=== PATIENT | female | born 1930 | race Caucasian/White ===

== ENCOUNTER 2016-11-29 13:16 | Inpatient (IN) | payer OTHER, MEDICARE ==
[~2016-11-29] VITALS: Ht 160 cm; Wt 46.4 kg
--- NOTE | ~2016-11-29 | HC ---
[facility] [place] [address] CONSULTATION Name: ROLACHANTALE Room #: 412-P [facility] IN M.R.#: [id number] Admission: 11/29/16 Attend Phys: Papi Corrales MD Discharge: 12/01/16 Date of : 34 Report #: [id number] THIS REPORT FOR: //name// CC: Ronal Corrales DATE OF SERVICE: 11/30/2016 REASON FOR WOUND CONSULTATION: Pressure ulcer of right hip. HISTORY OF PRESENT ILLNESS: The patient is an 86-year-old woman, who suffers from some dementia, who was living at home until recently, but has now been a female resident at the [facility] and was seen yesterday in the Wound Care Clinic here at [facility]. She was noted to have a serious pressure injury of her right hip requiring hospitalization and she has been admitted to Dr. Corrales. The patient's son and daughter, Deborah, are at her bedside and conference with the family indicates that they have spoken with their mother at great length over time and she does not wish to have aggressive medical maneuvers carried out. They are strongly considering hospice care for their mother and indicate that they would not want any aggressive measures such as surgery. The patient is currently on a dementia, suicide alert with a senior research scientist at her bedside. The patient had been living independently until a fall this past fall and she broke her ankle. These wounds healed. The patient has been immobile and wheelchair bound since the fall. Family is considering at this time palliative hospice care. PAST MEDICAL HISTORY: Dementia, severe protein-calorie malnutrition, right ankle fracture, history of hypercholesterolemia, history of depression, history of 4 suicide attempts, history of right hip fracture with right hip arthroplasty in 05/2010, history of hypertension, history hypothyroidism. PAST SURGICAL HISTORY: Ankle fracture, right hip fracture repair in 05/2010. MEDICATIONS: Include levothyroxine, nefazodone, Seroquel, vitamins, fish oil, Celexa, MiraLax and senna. PHYSICAL EXAMINATION: GENERAL: Reveals a severely malnourished elderly woman with signs of dementia. HEENT: Mucous membranes are slightly dry. NECK: Supple. The patient is alert and responsive. Breath sounds are decreased bilaterally. ABDOMEN: Soft and nondistended. MUSCULOSKELETAL: Examination of the right hip shows a 5 x 6 cm stage 4 pressure injury with palpable bone at the base and a large amount of necrotic skin and subcutaneous tissue over the wound. There is no overt cellulitis. There is a foul odor. Examination of the left hip shows a stage 1 [place] [address] CONSULTATION Name: CHANTALE CANELA Room #: 412-P [facility] IN ..#: [id number] Admission: 11/29/16 Attend Phys: Papi Corrales MD Discharge: 12/01/16 Date of : 34 Report #: [id number] left hip without open skin. There are no wounds to the sacrum. EXTREMITIES: Examination of the lower extremity shows muscle wasting and healed abrasions. IMPRESSION: 1. Dementia. 2. Debility and immobility. 3. Severe protein-calorie malnutrition. 4. 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 5. Stage 1 left hip pressure injury. PLAN: Discussed with the family, they did not wish aggressive measures or surgery. I feel the best wound care measure for the right hip will be half strength Dakin's gauze packing to be changed twice daily, simple foam border on the left hip, offloading and position changes. Family is considering hospice care. Wound Care Team will follow. <ELECTRONICALLY SIGNED> By: Christiano Bueno MD 12/04/16 1756 1709 [id number] Christiano Bueno MD /nt
--- NOTE | ~2016-11-29 | HC ---
[facility] [place] [address] CONSULTATION Name: CHANTALE CANELA Room #: 412-P ADM IN M.R.#: [id number] Admission: 11/29/16 Attend Phys: Papi Corrales MD Discharge: Date of : 34 Report #: [id number] THIS REPORT FOR: //name// CC: Ronal Corrales TYPE OF REPORT: Infectious disease consultation. REASON FOR CONSULTATION: I was asked to evaluate the patient concerning infected right hip wound. HISTORY OF PRESENT ILLNESS: The patient was an 86-year-old transferred from [facility] because of progressive nonhealing right hip wound. The patient was unable to give any further history due to her underlying dementia. The history was gleamed from the heart. In July, she fractured her right ankle. Subsequently, had ORIF and was in rehabilitation. She developed wound to her right hip, which has progressed. No documented fever, chills or sweats. She has a fair amount of pain in this region. ALLERGIES: None. MEDICATIONS: As noted on her MAR, which were reviewed. REVIEW OF SYSTEMS: No cough or sputum production. No nausea, vomiting or diarrhea. She is incontinent. She does have a history of delirium and depression. PAST MEDICAL HISTORY: Also noted for hypothyroidism, anxiety, dysphagia, right hip unipolar arthroplasty, hypertension and hyperlipidemia. FAMILY HISTORY: Noncontributory. SOCIAL HISTORY: Nonsmoker. No significant alcohol intake. REVIEW OF SYSTEMS: As noted above. PHYSICAL EXAMINATION: VITAL SIGNS: Afebrile, hemodynamically stable. GENERAL: She was alert in the position, was cooperative. Did know she was in the hospital. HEENT: Unremarkable. LUNGS: Clear. HEART: Regular. ABDOMEN: Soft and nontender. EXTREMITIES: Right hip wound was extensive with tissue necrosis and surrounding erythema. There was no purulent drainage. She had reasonable range of motion. No other decubiti noted. [facility] [address] [place] [address] CONSULTATION Name: CHANTALE CANELA Room #: 412-P ADM IN [facility]#: [id number] Admission: 11/29/16 Attend Phys: Papi Corrales MD Discharge: Date of : 34 Report #: [id number] RADIOLOGICAL DATA: X-ray of the hip showed postoperative changes, right total hip arthroplasty. No evidence of hardware failure or loosening. LABORATORY DATA: Gram stain showed mixed uli. Culture is pending from the wound. Hemoglobin 11, white count 7.2 and sedimentation rate 38. Sodium 143, potassium 4.1, bicarbonate of 28 and creatinine 0.7. Liver function test normal. IMPRESSION: An 86-year-old with a nonhealing progressive wound to right hip complicating a previous right total hip arthroplasty. PLAN: Recommend further surgical debridement. Continue with IV antibiotic therapy pending culture results. <ELECTRONICALLY SIGNED> By: Shahzad Holland MD 12/01/16 1027 0827 [id number] Shahzad Holland MD /lalitha
--- NOTE | ~2016-11-29 | D ---
[facility] [place] [address] DISCHARGE SUMMARY Name: CHANTALE CANELA Room #: 412-P [facility] IN M.R.#: [id number] Admission: 11/29/16 Attend Phys: Papi Corrales MD Discharge: 12/01/16 Date of : 34 Report #: [id number] THIS REPORT FOR: //name// CC: Ronal Corrales DATE OF SERVICE: 12/01/2016 TYPE OF DICTATION: Discharge summary after [id number] encounter. DISCHARGE DIAGNOSES: 1. Right hip wound. 2. Dementia. 3. Delirium. 4. Depression. 5. Hypertension. 6. Hypothyroidism. 7. Hyperlipidemia. 8. History of suicidal attempt. 9. Debility. DISCHARGE MEDICATIONS: See discharge summary. HISTORY OF PRESENT ILLNESS: The patient was admitted to the hospital secondary to right hip wound stage 4 and the patient known to have severe dementia. On admission, she was started with wound care and ID consult. In the same time, the wound care was taking care of her wound and ID started her on Zosyn. Next, the patient was considered at hospice and she is going to hospice house, so all her medicines will be discontinued and this will be resumed by the hospice service. <ELECTRONICALLY SIGNED> By: Hector Stacy MD 12/02/16 1708 1533 1846 Hector Stacy MD /nt
[~2016-11-29 13:16] MED LIST changes: -CEFUROXIME250 MG PO
[2016-11-29 14:38] VITALS: BP 118/57
[2016-11-29 15:32] LABS: HEMATOCRIT 34.1 % (37.0-47.0); HEMOGLOBIN 11.3 gm/dL (12.0-15.0); MCH 27.4 pg (26.0-34.0); MCHC 33.1 % (28.0-37.0); MCV 82.9 fL (80.0-100.0); RBC 4.11 mil/uL (4.20-5.00); RDW 14.4 % (10.5-14.5); WBC 7.2 thou/uL (4.0-11.0)
[2016-11-29 15:49] LABS: ALBUMIN 2.6 g/dL (3.4-5.0); CALCIUM 8.9 mg/dL (8.5-10.1); CREATININE 0.9 mg/dL (0.6-1.3); POTASSIUM 3.6 mmol/L (3.5-5.1); TOTAL BILIRUBIN 0.3 mg/dL (<0.1-1.0); TOTAL PROTEIN 5.9 g/dL (6.4-8.2)
[2016-11-29 20:00] VITALS: BP 103/54
[2016-11-30 07:22] LABS: ALBUMIN 2.2 g/dL (3.4-5.0); CALCIUM 8.4 mg/dL (8.5-10.1); CREATININE 0.7 mg/dL (0.6-1.3); POTASSIUM 4.1 mmol/L (3.5-5.1); TOTAL BILIRUBIN 0.3 mg/dL (<0.1-1.0); TOTAL PROTEIN 4.7 g/dL (6.4-8.2)
[2016-11-30 08:00] VITALS: BP 109/54
[2016-11-30 15:07] LABS: FOLIC ACID 14.8 ng/mL (>3.0)
[2016-12-01 05:05] VITALS: BP 103/56
[2016-12-01 05:17] VITALS: BP 112/51
[2016-12-01 09:00] VITALS: BP 104/58
[2016-12-01] MEDS ORDERED: CEFUROXIME250 MG PO (15:35)
== END 2016-12-01 16:58 | disposition hospice, inpatient (51) | DRG 592 ==
LOC: 4N 13:16
PROVIDERS: Family Medicine; Nurse Practitioner; Physician Assistant
DX: L89.214 Pressure ulcer of right hip, stage 4 (principal); E43 Unspecified severe protein-calorie malnutrition; Z68.1 Body mass index [BMI] 19.9 or less, adult; F03.90 Unspecified dementia, unspecified severity, without behavioral disturbance, psychotic disturbance, mood disturbance, and anxiety; E03.9 Hypothyroidism, unspecified; F41.9 Anxiety disorder, unspecified; Z96.641 Presence of right artificial hip joint; L89.221 Pressure ulcer of left hip, stage 1; I10 Essential (primary) hypertension; E78.5 Hyperlipidemia, unspecified; F32.9 Major depressive disorder, single episode, unspecified; E78.00 Pure hypercholesterolemia, unspecified; D64.9 Anemia, unspecified; R13.10 Dysphagia, unspecified; Z87.81 Personal history of (healed) traumatic fracture; Z79.899 Other long term (current) drug therapy
CPT/HCPCS: 10790

== ENCOUNTER → 2016-11-29 | Outpatient (CLI) | payer OTHER, MEDICARE ==
[~2016-11-29] MED LIST: CEFUROXIME250 MG PO; CELEXA20 MG PO; FISH OIL 1,001000 M2 PO; LEVOTHYROXIN0.025 MG PO; MIRALAX17 GM PO; NEFAZODONE HCL100 MG PO; NEFAZODONE HCL50 MG PO; SENNA S TABLET1 EACH PO; SEROQUEL 25 MG25 M1 PO; UNICOMPLEX M TA1 TA1 PO
== END ==
LOC: HYPER 11-25 07:01
DX: L89.221 Pressure ulcer of left hip, stage 1 (principal); L89.210 Pressure ulcer of right hip, unstageable; F33.9 Major depressive disorder, recurrent, unspecified; F03.91 Unspecified dementia, unspecified severity, with behavioral disturbance; Z96.641 Presence of right artificial hip joint